=== PATIENT | male | born 1990 ===

== ENCOUNTER 2017-10-06 05:57 | Emergency (ER) | payer SELFPAY ==
[2017-10-06 06:17] VITALS: O2SAT 99
--- NOTE | 2017-10-06 07:21 | C.PDOC ---
History Of Present Illness 27 y/o male presents to the ED requesting detox from heroin. States he injects 6-7 bags a day. Patient is requesting suboxone, methadone, and something to make him sleep. Patient also states he has stomach and joint pain associated with vomiting, diarrhea and chills that he claims are withdrawal symptoms. Denies fever. Time Seen by Provider: 10/06/17 07:15 Chief Complaint (Nursing): Substance Abuse History Per: Patient History/Exam Limitations: no limitations Onset/Duration Of Symptoms: Hrs Current Symptoms Are (Timing): Still Present Suicide/Self Injury Attempted (Context): None Associated Symptoms: denies: Anger, Depression, Suicidal Thoughts, Suicidal Plan Involuntary Hold By: None Recent travel outside of the [place]: No Past Medical History Reviewed: Historical Data, Nursing Documentation, Vital Signs Vital Signs: Last Vital Signs Temp 98.5 F 10/06/17 06:04 Pulse 81 10/06/17 07:26 Resp 16 10/06/17 07:26 BP 116/73 10/06/17 07:26 Pulse Ox 99 10/06/17 07:26 - Medical History PMH: No Chronic Diseases Surgical History: No Surg Hx Family History: States: No Known Family Hx - Social History Hx Alcohol Use: Yes Hx Substance Use: Yes (Heroin) - Immunization History Hx Tetanus Toxoid Vaccination: No Hx Influenza Vaccination: No Hx Pneumococcal Vaccination: No Review Of Systems Constitutional: Negative for: Fever, Chills Gastrointestinal: Positive for: Vomiting, Diarrhea, Other (Stomach pain). Negative for: Abdominal Pain Musculoskeletal: Positive for: Other (Joint pain) Neurological: Negative for: Weakness, Numbness Physical Exam - Physical Exam Appears: Well, Non-toxic, No Acute Distress, Other (Awake and Alert) Skin: Normal Color, Warm, Dry Head: Atraumatic, Normacephalic Eye(s): bilateral: Normal Inspection Oral Mucosa: Moist Neck: Supple Chest: Symmetrical, No Tenderness Cardiovascular: Rhythm Regular Respiratory: No Rales, No Rhonchi, No Wheezing Gastrointestinal/Abdominal: Soft, No Tenderness, No Distention, No Guarding, No Rebound Extremity: Normal ROM Neurological/Psych: Oriented x3, Normal Speech, Normal Cognition ED Course And Treatment O2 Sat by Pulse Oximetry: 99 (RA) Pulse Ox Interpretation: Normal Progress Note: Administered [facility]. there are no detox bed currently available. Patient was seen by the drop pit worker and provided with a list of resources. Reevaluation Time: 08:44 Reassessment Condition: Improved Disposition Counseled Patient/Family Regarding: Need For Followup - Disposition Referrals: Alcoholics Anonymous [Outside] Disposition: HOME/ ROUTINE Disposition Time: 08:48 Condition: STABLE Instructions: Narcotic Abuse (ED) Forms: [employer] (Italian) - Clinical Impression Clinical Impression: Opiate abuse, continuous - Scribe Statement The provider has reviewed the documentation as recorded by the Scribjesi Romero All medical record entries made by the Nicibjesi were at my direction and personally dictated by me. I have reviewed the chart and agree that the record accurately reflects my personal performance of the history, physical exam, medical decision making, and the department course for this patient. I have also personally directed, reviewed, and agree with the discharge instructions and disposition.
[2017-10-06 07:27] VITALS: RESP 16
[2017-10-06 09:14] VITALS: BP 111/66; PULSE 80; TEMP 98.2
== END 2017-10-06 09:13 | disposition home or self-care (01) ==
LOC: C.ER 05:57
DX: F11.10 Opioid abuse, uncomplicated (principal)